=== PATIENT | male | born 1965 | race Caucasian/White ===

== ENCOUNTER 2020-07-12 07:33 | Emergency (ER) | payer MEDICAID, OTHER ==
--- NOTE | 2020-07-12 07:43 | ERPHSYRPT ---
- History of Present Illness Time Seen by Provider: 07/12/20 07:36 Historian: patient Exam Limitations: no limitations Physician History: This is a 54-year-old white male who is not on any medications and has no known drug allergies and presents with right groin and testicle pain. It was sudden in onset during heavy lifting 2 days ago. The pain has not subsided. Patient denies chest pain he denies shortness of breath he denies abdominal pain. Timing/Duration: day(s) (2) Activities at Onset: other Quality: burning, sharpness (Heavy lifting), stabbing Abdominal Pain Onset Location: other (Right groin and testicle) Pain Radiation: no radiation Severity of Pain-Max: moderate Severity of Pain-Current: moderate Modifying Factors: Improves With: lying down (Improves), movement (Worsens) Associated Symptoms: denies symptoms Previous symptoms: no prior history Allergies/Adverse Reactions: No Known Drug Allergies Allergy (Verified 07/12/20 07:49) Travel Risk - International Travel Have you traveled outside of the country in past 3 weeks: No - Coronavirus Screening Are you exhibiting any of the following symptoms?: No Close contact with a COVID-19 positive Pt in past 14-21 Days: No - Review of Systems Constitutional: No Symptoms Eyes: No Symptoms Ears, Nose, & Throat: No Symptoms Respiratory: No Symptoms Cardiac: No Symptoms Abdominal/Gastrointestinal: No Symptoms Genitourinary Symptoms: Testicle Pain (Right) Musculoskeletal: No Symptoms Skin: No Symptoms Neurological: No Symptoms Psychological: No Symptoms Endocrine: No Symptoms Hematologic/Lymphatic: No Symptoms Immunological/Allergic: No Symptoms All Other Systems: Reviewed and Negative - Past Medical History Pertinent Past Medical History: No Neurological History: No Pertinent History ENT History: No Pertinent History Cardiac History: No Pertinent History Respiratory History: No Pertinent History Endocrine Medical History: No Pertinent History Musculoskeletal History: No Pertinent History GI Medical History: No Pertinent History History: No Pertinent History Psycho-Social History: No Pertinent History Male Reproductive Disorders: No Pertinent History - Past Surgical History Past Surgical History: No Neuro Surgical History: No Pertinent History Cardiac: No Pertinent History Respiratory: No Pertinent History Gastrointestinal: No Pertinent History Genitourinary: No Pertinent History Musculoskeletal: No Pertinent History Male Surgical History: No Pertinent History - Nursing Vital Signs Nursing Vital Signs: Initial Vital Signs Temperature 98.5 F 07/12/20 07:40 Pulse Rate 106 H 07/12/20 07:40 Respiratory Rate 18 07/12/20 07:40 Blood Pressure 150/92 07/12/20 07:40 O2 Sat by Pulse Oximetry 100 07/12/20 07:40 Pain Scale Pain Intensity 5 - Physical Exam General Appearance: no apparent distress, alert, anxiety Eye Exam: PERRL/EOMI, eyes nml inspection Ears, Nose, Throat Exam: normal ENT inspection, moist mucous membranes Neck Exam: normal inspection, non-tender, supple, full range of motion Respiratory Exam: normal breath sounds, lungs clear, airway intact, No chest tenderness, No respiratory distress Cardiovascular Exam: regular rate/rhythm, normal heart sounds, normal peripheral pulses Gastrointestinal/Abdomen Exam: soft, normal bowel sounds, No tenderness Male Genitalia Exam: normal genitalia, hernia (Right inguinal, reducible, direct), testicular tenderness (Right) Rectal Exam: not done Back Exam: normal inspection, normal range of motion, No CVA tenderness Extremity Exam: normal inspection, normal range of motion, pelvis stable Neurologic Exam: alert, oriented x 3, cooperative, 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 Counseled pt/family regarding: diagnosis, need for follow-up, rad results - Departure Departure Disposition: Home Clinical Impression: Right inguinal hernia, Right epididymitis, Right varicocele, Bilateral orchitis Condition: Stable Critical Care Time: No Additional Instructions: May apply ice pack to right groin and scrotum 2-3 times a day for the next 48 hours. Add ibuprofen 600 mg with food 3 times a day for the next 5 days. Avoid any heavy lifting over 10 to 15 pounds for the next 7 days. Take your medication as prescribed. Follow-up with a general surgeon for evaluation of your right inguinal hernia. Prescriptions: Oxycodone HCl/Acetaminophen [Percocet 5-325 mg Tablet] 1 each PO Q8H PRN PRN #9 tablet MDD 3 PRN Reason: Pain Ciprofloxacin [Cipro 500 MG] 500 mg PO BID #14 tablet
[2020-07-12 08:52] VITALS: O2SAT 98
--- NOTE | 2020-07-12 09:19 | XRAY ---
Indication: Strain injury. Two-dimensional testicular sonogram performed. Comparison: None Right testicle measures 2.3 x 2.1 x 2.5 cm and the left measures 3.7 x 1.6 x 2.0 cm. Both testicles appear heterogeneous in echogenicity without focal solid/cystic mass. Both testicles also demonstrates hyperemic color Doppler flow favoring orchitis. Small right hydrocele presumed reactive. Also enlarged right epididymis measuring 2.3 x 2.1 x 2.5 cm with hyperemic color Doppler flow favoring epididymitis. Left epididymis normal in size measuring 0.9 x 1.7 x 0.8 cm. There is mild right-sided varicocele accentuated with Valsalva maneuvering. Impression: 1. Sonographic features favoring bilateral orchitis and right epididymitis with small right hydrocele. 2. Incidental right-sided varicocele.
[2020-07-12 09:46] VITALS: BP 111/70; PULSE 81
== END 2020-07-12 09:48 | disposition home or self-care (01) ==
LOC: ED 07:33
DX: K40.90 Unilateral inguinal hernia, without obstruction or gangrene, not specified as recurrent (principal); N45.1 Epididymitis; I86.1 Scrotal varices; N45.2 Orchitis; R10.30 Lower abdominal pain, unspecified; N50.819 Testicular pain, unspecified; X50.9XXA Other and unspecified overexertion or strenuous movements or postures, initial encounter; X50.0XXA Overexertion from strenuous movement or load, initial encounter; Y93.89 Activity, other specified; Y92.9 Unspecified place or not applicable
CPT/HCPCS: 76870; 99283